=== PATIENT | male | born 1985 | race Caucasian/White ===

== ENCOUNTER 2017-05-24 19:42 | Emergency (ER) | payer OTHER ==
[2017-05-24 20:19] VITALS: BP 139/77; PULSE 108; RESP 18; TEMP 98.9
[2017-05-24] MEDS ORDERED: ACETAMINOPHEN TAB 500 MG TAB PO STA (20:40)
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
--- NOTE | 2017-05-24 21:19 | XR ---
EXAMINATION TYPE: XR lumbar spine 2 or 3V DATE OF EXAM: 05/24/2017 COMPARISON: NONE HISTORY: Pain TECHNIQUE: 3 views FINDINGS: There is no fracture or malalignment. No focal skeletal findings or incidental soft tissue finding. No degenerative spine changes. IMPRESSION: Negative examination.
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
== END 2017-05-24 21:40 | disposition home or self-care (01) ==
LOC: EC 19:42
DX: S30.0XXA Contusion of lower back and pelvis, initial encounter (principal); S00.31XA Abrasion of nose, initial encounter; S00.81XA Abrasion of other part of head, initial encounter; M54.2 Cervicalgia; F31.9 Bipolar disorder, unspecified; R40.2412 Glasgow coma scale score 13-15, at arrival to emergency department; F17.200 Nicotine dependence, unspecified, uncomplicated; Z79.899 Other long term (current) drug therapy; V40.6XXA Car passenger injured in collision with pedestrian or animal in traffic accident, initial encounter; Y92.59 Other trade areas as the place of occurrence of the external cause
CPT/HCPCS: 72050; 72100; 99284

== ENCOUNTER 2017-05-30 16:57 | Inpatient (IN) | payer MEDICAID, OTHER ==
[2017-05-30] MEDS ORDERED: SODIUM CHLORIDE 0.9% 500 ML IV STA (17:19)
--- NOTE | 2017-05-30 17:26 | ED ---
General Adult HPI - General Chief complaint: Psychiatric Symptoms Stated complaint: Mental Health Time Seen by Provider: 05/30/17 17:12 Source: patient, RN notes reviewed, old records reviewed Mode of arrival: ambulatory Limitations: no limitations - History of Present Illness Initial comments: This is a 31-year-old male here for evaluation of suicidal thoughts and suicidal attempt. Patient took multiple medications he does not live any longer. It has to Ativan and [id number] sleeping 8 - Related Data Home Medications Medication Instructions Recorded Confirmed Ibuprofen 800 mg PO TID PRN 05/24/17 05/30/17 QUEtiapine FUMARATE [SEROquel] 200 mg PO HS 05/24/17 05/30/17 LORazepam [Ativan] 0.5 mg PO BID 05/30/17 05/30/17 Penicillin V Potassium [Pen Vee K] 500 mg PO BID 05/30/17 05/30/17 Allergies Allergy/AdvReac Type Severity Reaction Status Date / Time No Known Allergies Allergy Verified 05/30/17 17:43 Review of Systems ROS Statement: Those systems with pertinent positive or pertinent negative responses have been documented in the HPI. ROS Other: All systems not noted in ROS Statement are negative. Past Medical History Past Medical History: No Reported History Additional Past Medical History / Comment(s): Chronic back pain History of Any Multi-Drug Resistant Organisms: None Reported Past Surgical History: No Surgical Hx Reported Past Psychological History: Bipolar, Depression Smoking Status: Current every day smoker Past Alcohol Use History: None Reported Past Drug Use History: Marijuana General Exam Limitations: no limitations General appearance: alert, in no apparent distress, lethargic Head exam: Present: atraumatic, normocephalic, normal inspection Eye exam: Present: normal appearance, PERRL, EOMI. Absent: scleral icterus, conjunctival injection, periorbital swelling ENT exam: Present: normal exam, mucous membranes moist Neck exam: Present: normal inspection. Absent: tenderness, meningismus, lymphadenopathy Respiratory exam: Present: normal lung sounds bilaterally. Absent: respiratory distress, wheezes, rales, rhonchi, stridor Cardiovascular Exam: Present: regular rate, normal rhythm, normal heart sounds. Absent: systolic murmur, diastolic murmur, rubs, gallop, clicks GI/Abdominal exam: Present: soft, normal bowel sounds. Absent: distended, tenderness, guarding, rebound, rigid Extremities exam: Present: normal inspection, full ROM, normal capillary refill. Absent: tenderness, pedal edema, joint swelling, calf tenderness Back exam: Present: normal inspection Neurological exam: Present: alert, oriented X3, CN II-XII intact Psychiatric exam: Present: normal affect, normal mood Skin exam: Present: warm, dry, intact, normal color. Absent: rash Course Vital Signs 05/30/17 05/30/17 05/30/17 16:59 17:54 18:52 Temperature 99.6 F Pulse Rate 107 H 107 H 103 H Respiratory 16 18 20 Rate Blood Pressure 134/67 128/64 115/78 O2 Sat by Pulse 98 97 98 Oximetry - Reevaluation(s) Reevaluation #1: 05/30/17 20:19 medically clear for psychiatric evaluation EKG Findings - EKG Comments: EKG Findings:: EKG shows sinus tachycardia rate 125, CT 122, QRS 92, QTc 467 Medical Decision Making - Lab Data Result diagrams: 05/30/17 17:50 05/30/17 17:50 Lab Results 05/30/17 05/30/17 05/30/17 Range/Units 17:50 17:50 17:50 WBC 6.3 (3.8-10.6) k/uL RBC 3.97 L (4.30-5.90) m/uL Hgb 12.0 L (13.0-17.5) gm/dL Hct 34.4 L (39.0-53.0) % MCV 86.6 (80.0-100.0) fL MCH 30.2 (25.0-35.0) pg MCHC 34.9 (31.0-37.0) g/dL RDW 12.9 (11.5-15.5) % Plt Count 303 (150-450) k/uL Neutrophils % 57 % Lymphocytes % 30 % Monocytes % 8 % Eosinophils % 2 % Basophils % 0 % Neutrophils # 3.6 (1.3-7.7) k/uL Lymphocytes # 1.9 (1.0-4.8) k/uL Monocytes # 0.5 (0-1.0) k/uL Eosinophils # 0.1 (0-0.7) k/uL Basophils # 0.0 (0-0.2) k/uL PT 11.2 (9.0-12.0) sec INR 1.1 (<1.2) Sodium 141 (137-145) mmol/L Potassium 3.6 (3.5-5.1) mmol/L Chloride 111 H (98-107) mmol/L Carbon Dioxide 18 L (22-30) mmol/L Anion Gap 12 mmol/L BUN 18 (9-20) mg/dL Creatinine 0.97 (0.66-1.25) mg/dL Est GFR (MDRD) Af Amer >60 (>60 ml/min/1.73 sqM) Est GFR (MDRD) Non-Af >60 (>60 ml/min/1.73 sqM) Glucose 112 H (74-99) mg/dL Calcium 9.1 (8.4-10.2) mg/dL Total Bilirubin 0.2 (0.2-1.3) mg/dL AST 22 (17-59) U/L ALT 25 (21-72) U/L Alkaline Phosphatase 51 (38-126) U/L Total Protein 7.1 (6.3-8.2) g/dL Albumin 4.4 (3.5-5.0) g/dL Salicylates <1.0 mg/dL Acetaminophen <10.0 ug/mL Serum Alcohol <10 mg/dL Disposition Referrals: Osmel Loyola MD [Primary Care Provider] - 1-2 days
[2017-05-30 18:05] LABS: Basophils % (A) 0 %; CH 29.9; CHCM 34.6; Eosinophils # (A) 0.1 k/uL (0-0.7); Eosinophils % (A) 2 %; HCT 34.4 % (39.0-53.0); Luc # (Auto) 0.16; Luc % (Auto) 3; Lymphocytes # (A) 1.9 k/uL (1.0-4.8); Lymphocytes % (A) 30 %; MCH 30.2 pg (25.0-35.0); MCHC 34.9 g/dL (31.0-37.0); MCV 86.6 fL (80.0-100.0); Mean Platelet Volume 6.3; Monocytes # (A) 0.5 k/uL (0-1.0); Monocytes % (A) 8 %; Neutrophils # (A) 3.6 k/uL (1.3-7.7); Neutrophils % (A) 57 %; RBC 3.97 m/uL (4.30-5.90); RDW 12.9 % (11.5-15.5); WBC 6.3 k/uL (3.8-10.6); WBC (Perox) 6.45
[2017-05-30 18:13] LABS: INR 1.1 (<1.2); Prothrombin Time 11.2 sec (9.0-12.0)
[2017-05-30 18:20] LABS: ALT 25 U/L (21-72); AST 22 U/L (17-59); Acetaminophen <10.0 ug/mL; Alcohol <10 mg/dL; Alkaline Phosphatase 51 U/L (38-126); Anion Gap 12 mmol/L; Blood Urea Nitrogen 18 mg/dL (9-20); Calcium 9.1 mg/dL (8.4-10.2); Carbon Dioxide 18 mmol/L (22-30); Chloride 111 mmol/L (98-107); Glucose 112 mg/dL (74-99); Non-African American GFR(MDRD) >60 (>60 ml/min/1.73 sqM); Potassium 3.6 mmol/L (3.5-5.1); Salicylate <1.0 mg/dL; Sodium 141 mmol/L (137-145); Total Bilirubin 0.2 mg/dL (0.2-1.3); Total Protein 7.1 g/dL (6.3-8.2)
[2017-05-31] MEDS ORDERED: ACETAMINOPHEN TAB 325 MG TAB PO STA (03:05)
[2017-05-31] MEDS ORDERED: LORazepam 1 MG TAB PO PRN (12:54)
[2017-05-31] MEDS ORDERED: MAGNESIUM HYDROXIDE 2,400 MG/10 ML CUP PO PRN (12:54)
[2017-05-31] MEDS ORDERED: ACETAMINOPHEN TAB 325 MG TAB PO PRN (12:54)
[2017-05-31] MEDS ORDERED: MAG HYDROX/AL HYDROX/SIMETH 30 ML CUP PO PRN (12:54)
[2017-05-31] MEDS ORDERED: ZIPRASIDONE 20 MG VIAL IM PRN (12:54)
[2017-05-31] MEDS ORDERED: LORazepam 2 MG/ML SYRINGE IM PRN (12:58)
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
[2017-05-31] MEDS: NICOTINE 21MG/24HR PATCH TRANSDERM SCH (17:00)
[2017-05-31] MEDS: IBUPROFEN 800 MG TAB PO PRN (17:00)
[2017-05-31] MEDS: LORazepam 0.5 MG TAB PO SCH (21:04)
[2017-05-31] MEDS: QUEtiapine 100 MG TAB PO SCH (21:06)
[2017-06-01] MEDS: NICOTINE 21MG/24HR PATCH TRANSDERM SCH (09:06)
[2017-06-01] MEDS: LORazepam 0.5 MG TAB PO SCH ×2 (09:06→21:07)
[2017-06-01] MEDS: IBUPROFEN 800 MG TAB PO PRN ×2 (09:07→16:37)
--- NOTE | 2017-06-01 11:42 | P.PN ---
Progress Note - Text Interval History: Patient is a 31-year-old male who is admitted after using morphine and taking an overdose of [id number] sleeping pills. Patient reports that on the increased dose of Seroquel he slept well last night and is not feeling stressed or overwhelmed this morning. He reports that he has energy this morning and did not feel groggy or sedated. He states that he has been attending groups and has found them helpful. Patient states that he is no longer feeling suicidal and continues to see that as an embarrassing action on his part. Patient states that he sees he needs to continue going to AA on a daily basis and obtain a sponsor. Patient reported that he is not feeling depressed and his mood has been stable. Patient reported no other complaints. Mental Status: Appearance/Attitude: Patient is dressed in a hospital gown and is neatly groomed and made good eye contact and was appropriate. Behavior: Patient is not exhibiting any psychomotor agitation or retardation. Speech/Language: Patient's speech is spontaneous and of normal volume and rhythm and he is coherent. Thought Process: Patient is goal-directed and there is no evidence of circumstantial or tangential thought and he is not exhibiting any loose associations or flight of ideas. Thought Content: Patient denies any auditory or visual hallucinations no delusions or paranoid ideation or elicited. Patient reports he is not feeling as stressed and overwhelmed as he was on admission. Patient states he slept well and is eating well. Patient states he is feeling calmer and more in control. Suicidal/Homicidal Ideation: Patient denied current suicidal or homicidal ideation. He views his attempt as embarrassing, after he relapsed using morphine. Sensorium/Cognition: Patient is alert and oriented to person, place, and time and his memory is grossly intact. Mood/Affect: patient's mood is pleasant and his affect is appropriate. Insight/Judgement: patient's insight and judgment are fair. Assessment: patient reports that he is no longer having any suicidal ideation and states that he is feeling less stressed and overwhelmed. He reported no difficulties tolerating the increase in his Seroquel and states he slept well and did not feel sedated or groggy this morning. Patient states that he sees he needs to continue attending AA meetings and obtain a sponsor. Patient discussed his long-term goal of going in October to [place] to attend the school to learn metal [employer]. Patient has been attending groups and activities and states they have been helpful to him. Plan: Patient will continue on Seroquel 300 mg at bedtime to target his mood and I discussed with him the long-term plan of titrating him off of his Ativan. Patient is currently on 0.5 mg of Ativan in the morning and 0.25 mg of Ativan at night I discussed with him possible discharge on Sunday and at that time his Ativan would be decreased to 0.25 mg twice a day. Patient was agreeable with these plans. I discussed with patient the need to think about activities after discharge to structure his day.
[2017-06-01] MEDS: QUEtiapine 100 MG TAB PO SCH (21:07)
[2017-06-02] MEDS: LORazepam 0.5 MG TAB PO SCH ×2 (08:25→20:46)
[2017-06-02] MEDS: IBUPROFEN 800 MG TAB PO PRN ×2 (08:26→17:30)
[2017-06-02] MEDS: NICOTINE 21MG/24HR PATCH TRANSDERM SCH (08:26)
--- NOTE | 2017-06-02 14:53 | P.PN ---
Progress Note - Text Interval history: Patient is seen in cross coverage today for Dr. Cameron. He relays that his mood is doing better. He was admitted after an overdose of approximately 10 pills. He states that this was not really a suicide attempt. He describes a history of opioid dependency. He wants to keep his sobriety. He talks about a training program in [place] that would help him with job opportunities. He does not voice any adverse psychotropic medication side effects. Mental status exam: He is alert and cooperative with the interview. His speech is fluent, not rapid or pressured. Thought processes organized. His mood seems improved. He does not verbalize any thoughts of harm to self or others. No evidence of psychosis or agitation. Plan: Maintain on current psychotropic medication regimen. We will monitor his ongoing response to monitor for any medication side effects. We'll continue to cover this patient for Dr. Cameron through the weekend.
[2017-06-02] MEDS: QUEtiapine 100 MG TAB PO SCH (20:46)
[2017-06-03] MEDS: NICOTINE 21MG/24HR PATCH TRANSDERM SCH (09:00)
[2017-06-03] MEDS: LORazepam 0.5 MG TAB PO SCH ×2 (09:00→20:31)
[2017-06-03] MEDS: IBUPROFEN 800 MG TAB PO PRN ×2 (09:01→18:33)
--- NOTE | 2017-06-03 17:36 | P.PN ---
Progress Note - Text Interval history: Patient is seen in cross coverage today for Dr. Cameron. He does talk about discharge planning for tomorrow. He does not voice any adverse I tropic medication side effects. Says that he slept at least 7 hours last night. He seems to be eating well. He has had visit from his which seemed to go well. He talks about wanting to keep his sobriety. Talks about attending meetings after discharge. Mental status exam: He is alert and cooperative with the interview. His speech is fluent, not rapid or pressured. Thought processes organized. His mood overall seems improved. He denies any thoughts of harm to self or others. He denies any hallucinations. No evidence of psychosis or agitation. He does show range of affect. Plan: We'll maintain current psychotropic medication regimen. Monitor for any medication side effects and for ongoing response. Look for discharge planning likely for tomorrow. Dr. Cameron will resume care this patient starting tomorrow.
[2017-06-03] MEDS: QUEtiapine 100 MG TAB PO SCH (20:30)
[2017-06-04 05:54] VITALS: BP 146/90; PULSE 97; RESP 12; TEMP 97.6
[2017-06-04] MEDS: NICOTINE 21MG/24HR PATCH TRANSDERM SCH (09:06)
[2017-06-04] MEDS: LORazepam 0.5 MG TAB PO SCH (09:06)
[2017-06-04] MEDS: IBUPROFEN 800 MG TAB PO PRN (09:08)
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
== END 2017-06-04 16:01 | disposition home or self-care (01) | DRG 885 ==
LOC: EC 16:57 → 3MHU 05-31 12:42
PROVIDERS: ADMIT Psychiatry & Neurology Psychiatry; ATTEND Psychiatry & Neurology Psychiatry
DX: F31.81 Bipolar II disorder (principal); F11.20 Opioid dependence, uncomplicated; R45.851 Suicidal ideations; F17.200 Nicotine dependence, unspecified, uncomplicated; F41.9 Anxiety disorder, unspecified; G89.29 Other chronic pain; M54.9 Dorsalgia, unspecified; Z79.899 Other long term (current) drug therapy; Z91.5 Personal history of self-harm
CPT/HCPCS: 36415; 80053; 80306; 80320; 82075; 83520; 84443; 85025; 85610; 93005; 96360; 99285

== ENCOUNTER 2019-11-04 11:32 | Emergency (ER) | payer OTHER ==
[2019-11-04 11:45] VITALS: RESP 18; TEMP 98.8
[2019-11-04] MEDS ORDERED: SODIUM CHLORIDE 0.9% 500 ML 500 ML IV STA (12:36)
--- NOTE | 2019-11-04 12:39 | ED ---
General Adult HPI - General Chief complaint: Abdominal Pain Stated complaint: Stomach pain Time Seen by Provider: 11/04/19 11:45 Source: patient, RN notes reviewed, old records reviewed Mode of arrival: ambulatory Limitations: no limitations - History of Present Illness Initial comments: This is a 33-year-old male who presents emergency Department complaining of a weeklong history of intermittent abdominal pain. Patient states he is on Suboxone for 3 years and he might be constipated. Patient denies nausea vomiting or diarrhea. Patient states he gets the pain at different times a day but sitting seems to be worse and lying flat. Patient denies any fever chills. Patient denies any chest pain difficulty breathing shortest breath. Patient den ies any back pain. Patient states he's had difficulty urinating sometimes patient's aspirin ongoing issue for the last 3 years. - Related Data Home Medications Medication Instructions Recorded Confirmed Ibuprofen 800 mg PO TID PRN 05/24/17 08/16/17 Buprenorphine HCl/Naloxone HCl 1 film SL BID 08/16/17 08/16/17 [Suboxone 8 mg-2 mg Sl Film] LORazepam [Ativan] 0.5 mg PO BID 08/16/17 08/16/17 QUEtiapine FUMARATE [SEROquel] 200 mg PO HS 08/16/17 08/16/17 Previous Rx's Medication Instructions Recorded Phenazopyridine [Pyridium] 200 mg PO TID #6 tablet 08/16/17 Allergies Allergy/AdvReac Type Severity Reaction Status Date / Time No Known Allergies Allergy Verified 11/04/19 11:45 Review of Systems ROS Statement: Those systems with pertinent positive or pertinent negative responses have been documented in the HPI. ROS Other: All systems not noted in ROS Statement are negative. Past Medical History Past Medical History: Hyperlipidemia Additional Past Medical History / Comment(s): Chronic back pain, past hx of substance abuse states sober x 3 years History of Any Multi-Drug Resistant Organisms: None Reported Past Surgical History: Hernia Repair Additional Past Surgical History / Comment(s): eye surg Past Psychological History: Bipolar, Depression Smoking Status: Current every day smoker Past Alcohol Use History: None Reported Past Drug Use History: Marijuana General Exam - General Exam Comments Initial Comments: GENERAL: Patient is well-developed and well-nourished. Patient is nontoxic and well- hydrated and is in mild distress. ENT: Neck is soft and supple. No significant lymphadenopathy is noted. Oropharynx is clear. Moist mucous membranes. Neck has full range of motion without e liciting any pain. EYES: The sclera were anicteric and conjunctiva were pink and moist. Extraocular movements were intact and pupils were equal round and reactive to light. Eyelids were unremarkable. PULMONARY: Unlabored respirations. Good breath sounds bilaterally. No audible rales rhonchi or wheezing was noted. CARDIOVASCULAR: There is a regular rate and rhythm without any murmurs gallops or rubs. ABDOMEN: Soft and nontender with normal bowel sounds. SKIN: Skin is clear with no lesions or rashes and otherwise unremarkable. NEUROLOGIC: Patient is alert and oriented x3. Cranial nerves II through XII are grossly intact. Motor and sensory are also intact. Normal speech, volume and content. Symmetrical smile. MUSCULOSKELETAL: Normal extremities with adequate strength and full range of motion. No lower extremity swelling or edema. No calf tenderness. LYMPHATICS: No significant lymphadenopathy is noted PSYCHIATRIC: Normal psychiatric evaluation. Limitations: no limitations Course Vital Signs 11/04/19 11:42 Temperature 98.8 F Pulse Rate 81 Respiratory 18 Rate Blood Pressure 129/83 O2 Sat by Pulse 100 Oximetry Medical Decision Making - Medical Decision Making KUB shows significant fecal stasis. Patient was comfortable emergency department agreed that that is probably the problem and will go home and get on some laxatives as well as some Benefiber. - Lab Data Result diagrams: 11/04/19 12:45 11/04/19 12:45 Lab Results 11/04/19 11/04/19 11/04/19 Range/Units 12:30 12:45 12:45 WBC 10.4 (3.8-10.6) k/uL RBC 4.76 (4.30-5.90) m/uL Hgb 15.1 (13.0-17.5) gm/dL Hct 42.9 (39.0-53.0) % MCV 90.1 (80.0-100.0) fL MCH 31.7 (25.0-35.0) pg MCHC 35.1 (31.0-37.0) g/dL RDW 12.2 (11.5-15.5) % Plt Count 332 (150-450) k/uL Neutrophils % 64 % Lymphocytes % 26 % Monocytes % 4 % Eosinophils % 3 % Basophils % 1 % Neutrophils # 6.7 (1.3-7.7) k/uL Lymphocytes # 2.7 (1.0-4.8) k/uL Monocytes # 0.5 (0-1.0) k/uL Eosinophils # 0.3 (0-0.7) k/uL Basophils # 0.1 (0-0.2) k/uL Sodium 143 (137-145) mmol/L Potassium 4.3 (3.5-5.1) mmol/L Chloride 111 H (98-107) mmol/L Carbon Dioxide 21 L (22-30) mmol/L Anion Gap 11 mmol/L BUN 17 (9-20) mg/dL Creatinine 0.89 (0.66-1.25) mg/dL Est GFR (CKD-EPI)AfAm >90 (>60 ml/min/1.73 sqM) Est GFR (CKD-EPI)NonAf >90 (>60 ml/min/1.73 sqM) Glucose 71 L (74-99) mg/dL Calcium 10.1 (8.4-10.2) mg/dL Total Bilirubin 0.6 (0.2-1.3) mg/dL AST 34 (17-59) U/L ALT 21 (4-49) U/L Alkaline Phosphatase 64 (38-126) U/L Total Protein 8.6 H (6.3-8.2) g/dL Albumin 5.1 H (3.5-5.0) g/dL Amylase 87 (30-110) U/L Lipase 116 (23-300) U/L Urine Color Yellow Urine Appearance Clear (Clear) Urine pH 6.5 (5.0-8.0) Ur Specific [place] 1.021 (1.001-1.035) Urine Protein Negative (Negative) Urine Glucose (UA) Negative (Negative) Urine Ketones Negative (Negative) Urine Blood Negative (Negative) Urine Nitrite Negative (Negative) Urine Bilirubin Negative (Negative) Urine Urobilinogen <2.0 (<2.0) mg/dL Ur Leukocyte Esterase Negative (Negative) Disposition Clinical Impression: Constipation Disposition: HOME SELF-CARE Instructions (If sedation given, give patient instructions): Constipation (ED), High Fiber Diet (ED) Is patient prescribed a controlled substance at d/c from ED?: No Referrals: Suraj Chase DO [Primary Care Provider] - 1-2 days Time of Disposition: 14:22
[2019-11-04 12:45] LABS: Appearance,Urine Clear (Clear); Bilirubin,Urine Negative (Negative); Blood,Urine Negative (Negative); Color,Urine Yellow; Glucose,Urine (UA) Negative (Negative); Ketones,Urine Negative (Negative); Leukocyte Esterase,Urine Negative (Negative); Nitrite,Urine Negative (Negative); PH, Urine 6.5 (5.0-8.0); Protein,Urine Negative (Negative); Specific Gravity,Urine 1.021 (1.001-1.035); Urobilinogen,Urine <2.0 mg/dL (<2.0)
[2019-11-04 12:58] LABS: Basophils # (A) 0.1 k/uL (0-0.2); Basophils % (A) 1 %; Eosinophils # (A) 0.3 k/uL (0-0.7); Eosinophils % (A) 3 %; HCT 42.9 % (39.0-53.0); HGB 15.1 gm/dL (13.0-17.5); Lymphocytes # (A) 2.7 k/uL (1.0-4.8); Lymphocytes % (A) 26 %; MCH 31.7 pg (25.0-35.0); MCHC 35.1 g/dL (31.0-37.0); MCV 90.1 fL (80.0-100.0); Mean Platelet Volume 7.2; Monocytes # (A) 0.5 k/uL (0-1.0); Monocytes % (A) 4 %; Neutrophils # (A) 6.7 k/uL (1.3-7.7); Neutrophils % (A) 64 %; Platelet Count 332 k/uL (150-450); RBC 4.76 m/uL (4.30-5.90); RDW 12.2 % (11.5-15.5); WBC 10.4 k/uL (3.8-10.6)
--- NOTE | 2019-11-04 13:03 | XR ---
KUB HISTORY: Abdomen pain Frontal KUB submitted. Lung bases are clear. Retained fecal debris present throughout the distribution of the colon. There i s a spinal curvature present. No pneumoperitoneum or pathologic calcification, no bowel obstruction e vident. Probable phleboliths in the pelvis. IMPRESSION: Correlate for fecal stasis.
[2019-11-04 13:11] LABS: ALT 21 U/L (4-49); AST 34 U/L (17-59); African American GFR (CKD) >90 (>60 ml/min/1.73 sqM); Albumin 5.1 g/dL (3.5-5.0); Alkaline Phosphatase 64 U/L (38-126); Amylase 87 U/L (30-110); Anion Gap 11 mmol/L; Blood Urea Nitrogen 17 mg/dL (9-20); Calcium 10.1 mg/dL (8.4-10.2); Carbon Dioxide 21 mmol/L (22-30); Chloride 111 mmol/L (98-107); Glucose 71 mg/dL (74-99); Non-African American GFR(CKD) >90 (>60 ml/min/1.73 sqM); Potassium 4.3 mmol/L (3.5-5.1); Sodium 143 mmol/L (137-145); Total Bilirubin 0.6 mg/dL (0.2-1.3); Total Protein 8.6 g/dL (6.3-8.2)
[2019-11-04 14:29] VITALS: BP 119/75; PULSE 63
== END 2019-11-04 14:23 | disposition home or self-care (01) ==
LOC: EC 11:32
DX: K59.00 Constipation, unspecified (principal); R30.0 Dysuria; G89.29 Other chronic pain; F31.9 Bipolar disorder, unspecified; F17.200 Nicotine dependence, unspecified, uncomplicated; Z79.899 Other long term (current) drug therapy
CPT/HCPCS: 36415; 74018; 80053; 81003; 82150; 83690; 85025; 96360; 99284